=== PATIENT | female | born 1995 | race Two or more races ===

== ENCOUNTER 2017-09-24 11:11 | Emergency (ER) | payer MEDICAID, OTHER ==
[~2017-09-24] VITALS: Ht 162.6 cm; Wt 59.0 kg
[2017-09-24 11:26] VITALS: BP 126/83
[2017-09-24] MEDS ORDERED: IBUPROFEN 800 MG TAB PO ONE (14:45)
== END 2017-09-24 15:16 | disposition home or self-care (01) ==
LOC: ER 11:11
DX: S80.02XA Contusion of left knee, initial encounter (principal); S00.11XA Contusion of right eyelid and periocular area, initial encounter; V47.6XXA Car passenger injured in collision with fixed or stationary object in traffic accident, initial encounter; Y93.89 Activity, other specified; Y99.8 Other external cause status; Y92.488 Other paved roadways as the place of occurrence of the external cause
CPT/HCPCS: 73562